=== PATIENT | female | born 1975 | race Caucasian/White ===

== ENCOUNTER 2017-04-21 10:59 | Day surgery (SDC) | payer OTHER ==
--- NOTE | 2017-04-21 12:53 | Operative Note ---
Upper GI Endoscopy Procedure date: 04/21/17 Date of : 73 Procedure:Upper GI Endoscopy Esophagogastroduodenoscopy with cold biopsies and TTS balloon dilation Indications: Mrs. Camacho is a 41-year-old female who is here for diagnostic upper endoscopy. She states that she developed a sore throat 2 years ago. She did have an upper endoscopy at [facility], [place] at that time and she was told that she had some reflux and has been on numerous proton pump inhibitors without complete relief of her symptoms. She reports very frequent globus sensation and sometimes this is worse than others. She feels something trapped and does report frequent clearance of the throat. She also has had thyroid swelling even though her thyroid studies have been normal. She does have moderate belching and feels as if there is trapped air when her globus is worse. She does have bloating and early satiety. She also has obstipation/constipation and has improved since initiation of the combined fiber bowel regimen (MiraLAX plus Citrucel). She was formerly having a bowel movement every 3-4 days. She reports some epigastric abdominal discomfort, early satiety and rare nausea. She reports no dysphagia. She has a copper taste in her mouth in the mornings. She has had no prior colonoscopy. She did see Dr. Reji Díaz ENT previously. Performing Provider: Darrel Rucker MD Referring Provider: Porfirio Grant M.D. Sedation: Fentanyl 200 mg IV/Versed 7 mg IV Procedure: Prior to the procedure, a history and physical exam was performed, and patients medications and allergies were reviewed. The risks and benefits of the procedure and the sedation options and risks were discussed with the patient. All questions were answered and informed consent was obtained. The patient was brought to the procedure room. Patient identification and proposed procedure were verified by the physician and the nurse. The patient was placed in a left lateral decubitus position and the scope was passed under direct vision. Throughout the procedure, the patient's blood pressure, pulse, and oxygen saturations were monitored continuously. The endoscope was introduced through the mouth, and advanced to the second part of duodenum. The upper GI endoscopy was accomplished without difficulty. The patient tolerated the procedure well. Findings: The scope was passed directly into the upper esophagus and advanced to the third portion of the duodenum. The post bulbar duodenum and duodenal bulb were normal with normal mucosa and conniventes. The scope was withdrawn through a normal duodenal bulb and pylorus into the stomach. There was mild pylorospasm. There was also some linear erythema of the antrum and proximal body of the stomach consistent with linear reactive gastritis with some bile reflux. The remainder of the antrum, body and fundus of the stomach were grossly normal. Upon retroflexion there was no hiatal hernia. 2 biopsies were taken in the antrum and along the lesser curvature for histology. The scope was then withdrawn into the esophagus. There was a serrated Z line consistent with nonerosive gastroesophageal reflux disease. 2 biopsies were taken at the Z line to rule out intestinal metaplasia. There were tertiary contractions and evidence of mild esophageal dysmotility. The upper esophageal sphincter/cricopharyngeus was thickened/spasmatic and this was dilated using a TTS hydrostatic balloon to 20 mm/60 Camb[place] with resistance. The remainder of the esophageal mucosa was normal. Immediate complications: None EBL (ml): 0 Impression: 1. Cricopharyngeal spasm status post dilation to 20 mm 2. Nonerosive gastroesophageal reflux disease with mild esophageal dysmotility 3. Mild linear reactive gastritis Recommendations: I do feel that the patient has globus sensation secondary to functional gastroesophageal reflux disease and cricopharyngeal spasm. I would continue dietary measures, fiber bowel regimen and treatment with a promotility agent. I would also consider a serotonin-based treatment to help with spasm in the evening at bedtime. I will follow up the biopsies and discuss the findings with the patient and family. at 1253
[2017-04-21 16:32] VITALS: BP 120/81
== END 2017-04-21 14:00 | disposition home or self-care (01) ==
LOC: SDC 10:59
PROVIDERS: Internal Medicine Gastroenterology
PROC: 0DB78ZX Excision of Stomach, Pylorus, Via Natural or Artificial Opening Endoscopic, Diagnostic (ICD-10-PCS; 2017-04-21)
PROC: 0D758ZZ Dilation of Esophagus, Via Natural or Artificial Opening Endoscopic (ICD-10-PCS; principal; 2017-04-21 12:00)
DX: K21.9 Gastro-esophageal reflux disease without esophagitis (principal); J39.2 Other diseases of pharynx; K22.4 Dyskinesia of esophagus; K29.60 Other gastritis without bleeding
CPT/HCPCS: C1726